=== PATIENT | female | born 1990 | race Two or more races ===

== ENCOUNTER 2018-09-18 17:50 | Emergency (ER) | payer MEDICAID ==
[~2018-09-18] VITALS: Ht 165.1 cm; Wt 110.2 kg
[2018-09-18 18:12] VITALS: BP 168/100
== END 2018-09-18 23:02 | disposition home or self-care (01) ==
LOC: EDBD 17:50 → ER 17:50
DX: S09.90XA Unspecified injury of head, initial encounter (principal); V43.52XA Car driver injured in collision with other type car in traffic accident, initial encounter; Y93.89 Activity, other specified; Y99.8 Other external cause status; Y92.410 Unspecified street and highway as the place of occurrence of the external cause
CPT/HCPCS: 70450; 73030